=== PATIENT | female | born 1975 | race Caucasian/White ===

== ENCOUNTER 2025-03-27 23:50 | Emergency (ER) | payer OTHER ==
[2025-03-28 00:25] LABS: BASOPHILS ABSOLUTE AUTO 0.06 K/uL (0.00-0.10); BASOPHILS PERCENT AUTO 0.7 % (0.1-1.3); EOSINOPHILS ABSOLUTE AUTO 0.25 K/uL (0.00-0.40); EOSINOPHILS PERCENT AUTO 2.7 % (0.0-5.4); IMMATURE GRAN ABSOLUTE AUTO 0.04 K/uL (0.00-0.23); IMMATURE GRAN PERCENT AUTO 0.4 % (0.0-0.7); LYMPHOCYTES ABSOLUTE AUTO 3.60 K/uL (0.8-3.3); LYMPHOCYTES PERCENT AUTO 39.1 % (11.4-47.7); MONOCYTES ABSOLUTE AUTO 0.69 K/uL (0.20-0.90); MONOCYTES PERCENT AUTO 7.5 % (3.3-12.6); NEUTROPHILS ABSOLUTE AUTO 4.57 K/uL (1.0-7.6); NEUTROPHILS PERCENT AUTO 49.6 % (40.0-78.1); PLATELET COUNT,PLT 334 K/uL (130-375); RED BLOOD CELL COUNT 5.21 M/uL (3.77-5.24); WHITE BLOOD CELL COUNT,WBC 9.2 K/uL (3.2-11.0)
[2025-03-28 00:48] LABS: A/G RATIO 0.8 (1.2-2.2); ALANINE AMINOTRANSFERASE,ALT 46 U/L (12-78); ASPARTATE AMNIOTRANSFERASE,AST 27 U/L (15-37); BILIRUBIN TOTAL 0.4 mg/dL (0.2-1.0); BLOOD UREA NITROGEN,BUN 17 mg/dL (7-18); CARBON DIOXIDE,CO2 28 mmol/L (21-32); CHLORIDE,CL 100 mmol/L (100-108); CREATININE 0.9 mg/dL (0.6-1.0); EST CRCL DRUG DOSING (CG) 57.06 mL/min; ESTIMATED GFR 78 mL/min (>60); GLUCOSE RANDOM 177 mg/dL (74-106); POTASSIUM,K 3.2 mmol/L (3.6-5.2); PROTEIN TOTAL,TP 8.2 g/dL (6.4-8.2); SODIUM,NA 140 mmol/L (140-148); TROPONIN I HIGH SENSITIVITY 17.0 pg/mL (<=60.3)
== END 2025-03-28 01:11 | disposition home or self-care (01) ==
LOC: JP.ED 23:50
DX: R07.9 Chest pain, unspecified (principal); Z91.040 Latex allergy status; Z79.899 Other long term (current) drug therapy
CPT/HCPCS: 36415; 71045; 71045-26; 80053; 84484; 85025; 93005; 93010; 99285